=== PATIENT | female | born 1985 | race Caucasian/White ===

== ENCOUNTER 2020-12-24 18:52 | Emergency (ER) | payer BC, MEDICAID ==
[2020-12-24] MEDS ORDERED: Sodium Chloride 0.9% 2.5 ML Syringe FLUSH PRN (19:28)
[2020-12-24] MEDS ORDERED: Sodium Chloride 0.9% 10 ML Syringe FLUSH PRN (19:28)
[2020-12-24] MEDS ORDERED: acetaZOLAMIDE 250 MG Tab PO ONE (19:33)
--- NOTE | 2020-12-24 19:34 | EDM.PDOC ---
ED HPI GENERAL MEDICAL PROBLEM - General Chief Complaint: Head Injury Stated Complaint: INTRACRANIAL HYPERTENSION Time Seen by Provider: 12/24/20 19:18 Source of Information: Reports: Patient History Limitations: Reports: No Limitations - History of Present Illness INITIAL COMMENTS - FREE TEXT/NARRATIVE: 35-year-old female no past medical history presents for blurry vision and headache. Patient notes that she has had blurry vision and mild dull achy headache in her right retro-orbital area for the last 3 weeks. She went to an freight traffic consultant and had a comprehensive eye exam which was concerning for increased intracranial pressure. She has follow-up appointment tomorrow with ophthalmology for further work-up for this. She noted that for the last couple of days she had blurry vision in her left eye. Her headache is not worsening. She has had no nausea or vomiting. Denies any one-sided body weakness or paresthesias. Head Pain Score (Numeric/FACES): 4 - Related Data Allergies Allergy/AdvReac Type Severity Reaction Status Date / Time No Known Allergies Allergy Verified 12/24/20 19:18 Home Meds: Home Meds . [No Known Home Meds] 12/24/20 [History] Social & Family History - Recreational Drug Use Recreational Drug Use: No ED ROS GENERAL - Review of Systems Review Of Systems: Comprehensive ROS is negative, except as noted in HPI. ED EXAM, HEAD INJURY - Physical Exam Exam: See Below Exam Limited By: No Limitations General Appearance: Alert, WD/WN, No Apparent Distress Head: Atraumatic, Normocephalic Eyes: Bilateral Eye: EOMI, PERRL Ears: Hearing Grossly Normal Nose: Normal Inspection Throat/Mouth: Normal Voice, No Airway Compromise Neck: Non-Tender, Full Range of Motion Respiratory: No Respiratory Distress, Lungs Clear, Normal Breath Sounds Cardiovascular: Normal Peripheral Pulses, Regular Rate, Rhythm Extremities: Normal Inspection Neurologic: handbag operator II-XII nml As Tested, No Motor/Sensory Deficits, Alert, Normal Mood/Affect, Oriented x 3, Abnormal Gait Skin: Normal Color, Warm/Dry Course - Vital Signs Last Recorded V/S: Last Vital Signs Temp 97.9 F 12/24/20 19:12 Pulse 78 12/24/20 20:03 Resp 18 12/24/20 20:03 BP 134/79 12/24/20 20:03 Pulse Ox 97 12/24/20 20:03 - Orders/Labs/Meds Orders: Active Orders 24 hr Category Date Time Status Sodium Chloride 0.9% [Saline Flush] Med 12/24/20 19:28 Active 10 ml FLUSH ASDIRECTED PRN Sodium Chloride 0.9% [Saline Flush] Med 12/24/20 19:28 Active 2.5 ml FLUSH ASDIRECTED PRN Saline Lock Insert [OM.PC] Stat Oth 12/24/20 19:28 Ordered Medication Orders Sodium Chloride (Sodium Chloride 0.9% 10 Ml Syringe) 10 ml FLUSH ASDIRECTED PRN PRN Reason: Keep Vein Open Last Admin: 12/24/20 20:29 Dose: 10 ml Documented by: GILA Sodium Chloride (Sodium Chloride 0.9% 2.5 Ml Syringe) 2.5 ml FLUSH ASDIRECTED PRN PRN Reason: Keep Vein Open Last Admin: 12/24/20 20:29 Dose: 2.5 ml Documented by: GILA Labs: Laboratory Tests 12/24/20 12/24/20 12/24/20 Range/Units 19:40 19:40 19:40 WBC 18.20 H (4.0-11.0) K/uL RBC 4.89 (4.30-5.90) M/uL Hgb 15.4 (12.0-16.0) g/dL Hct 45.0 (36.0-46.0) % MCV 92.0 (80.0-98.0) fL MCH 31.5 (27.0-32.0) pg MCHC 34.2 (31.0-37.0) g/dL RDW Std Deviation 44.6 (28.0-62.0) fl RDW Coeff of Felicia 13 (11.0-15.0) % Plt Count 333 (150-400) K/uL MPV 10.20 (7.40-12.00) fL Neut % (Auto) 71.1 (48.0-80.0) % Lymph % (Auto) 21.8 (16.0-40.0) % [place] % (Auto) 4.5 (0.0-15.0) % Eos % (Auto) 2.3 (0.0-7.0) % Baso % (Auto) 0.3 (0.0-1.5) % Neut # (Auto) 13.0 H (1.4-5.7) K/uL Lymph # (Auto) 4.0 H (0.6-2.4) K/uL [place] # (Auto) 0.8 (0.0-0.8) K/uL Eos # (Auto) 0.4 (0.0-0.7) K/uL Baso # (Auto) 0.1 (0.0-0.1) K/uL Nucleated RBC % 0.0 /100WBC Nucleated RBCs # 0 K/uL Sodium 136 (136-145) mmol/L Potassium 3.9 (3.5-5.1) mmol/L Chloride 100 (98-107) mmol/L Carbon Dioxide 25.8 (21.0-32.0) mmol/L BUN 13 (7.0-18.0) mg/dL Creatinine 1.2 H (0.6-1.0) mg/dL Est Cr Clr Drug Dosing 57.04 mL/min Estimated GFR (MDRD) 51.4 ml/min Glucose 123 H (74-106) mg/dL Calcium 9.5 (8.5-10.1) mg/dL Total Bilirubin 0.5 (0.2-1.0) mg/dL AST 15 (15-37) IU/L ALT 26 (14-63) IU/L Alkaline Phosphatase 106 (46-116) U/L Total Protein 8.3 H (6.4-8.2) g/dL Albumin 4.2 (3.4-5.0) g/dL Globulin 4.1 H (2.6-4.0) g/dL Albumin/Globulin Ratio 1.0 (0.9-1.6) HCG, Qual NEGATIVE (NEG) SARS-CoV-2 RNA (ABHISHEK) (NEGATIVE) 12/24/20 Range/Units 20:15 WBC (4.0-11.0) K/uL RBC (4.30-5.90) M/uL Hgb (12.0-16.0) g/dL Hct (36.0-46.0) % MCV (80.0-98.0) fL MCH (27.0-32.0) pg MCHC (31.0-37.0) g/dL RDW Std Deviation (28.0-62.0) fl RDW Coeff of Felicia (11.0-15.0) % Plt Count (150-400) K/uL MPV (7.40-12.00) fL Neut % (Auto) (48.0-80.0) % Lymph % (Auto) (16.0-40.0) % [place] % (Auto) (0.0-15.0) % Eos % (Auto) (0.0-7.0) % Baso % (Auto) (0.0-1.5) % Neut # (Auto) (1.4-5.7) K/uL Lymph # (Auto) (0.6-2.4) K/uL [place] # (Auto) (0.0-0.8) K/uL Eos # (Auto) (0.0-0.7) K/uL Baso # (Auto) (0.0-0.1) K/uL Nucleated RBC % /100WBC Nucleated RBCs # K/uL Sodium (136-145) mmol/L Potassium (3.5-5.1) mmol/L Chloride (98-107) mmol/L Carbon Dioxide (21.0-32.0) mmol/L BUN (7.0-18.0) mg/dL Creatinine (0.6-1.0) mg/dL Est Cr Clr Drug Dosing mL/min Estimated GFR (MDRD) ml/min Glucose (74-106) mg/dL Calcium (8.5-10.1) mg/dL Total Bilirubin (0.2-1.0) mg/dL AST (15-37) IU/L ALT (14-63) IU/L Alkaline Phosphatase (46-116) U/L Total Protein (6.4-8.2) g/dL Albumin (3.4-5.0) g/dL Globulin (2.6-4.0) g/dL Albumin/Globulin Ratio (0.9-1.6) HCG, Qual (NEG) SARS-CoV-2 RNA (ABHISHEK) NEGATIVE (NEGATIVE) Meds: Medications Generic Name Dose Route Start Last Admin Trade Name Freq PRN Reason Stop Dose Admin Sodium Chloride 10 ml 12/24/20 19:28 12/24/20 20:29 Sodium Chloride 0.9% 10 Ml Syringe FLUSH 10 ml ASDIRECTED PRN Administration Keep Vein Open Sodium Chloride 2.5 ml 12/24/20 19:28 12/24/20 20:29 Sodium Chloride 0.9% 2.5 Ml Syringe FLUSH 2.5 ml ASDIRECTED PRN Administration Keep Vein Open Discontinued Medications Generic Name Dose Route Start Last Admin Trade Name Guy PRN Reason Stop Dose Admin Acetazolamide 500 mg 12/24/20 19:33 12/24/20 20:28 Acetazolamide 250 Mg Tab PO 12/24/20 19:34 500 mg ONETIME ONE Administration - Re-Assessments/Exams Free Text/Narrative Re-Assessment/Exam: 12/24/20 19:46 Will get labs and CT imaging. Will give acetazolamide. 12/24/20 22:04 CT imaging is unremarkable. Patient does have a leukocytosis but otherwise labs unremarkable. I spoke with patient regarding the possibility of increased intracranial pressure and offered lumbar puncture procedure and observation admission for further work-up. Patient declines at this time and states that she would rather follow-up with her doctor in the morning. I did discuss the risks of permanent vision loss. Patient states that if things get worse and she will come back to the emergency department. She notes that her freight traffic consultant tomorrow recommends coming back to the ER for a lumbar puncture then she will come back tomorrow. Departure - Departure Time of Disposition: 22:05 Disposition: Home, Self-Care 01 Condition: Good Clinical Impression: Increased intracranial pressure - Discharge Information Instructions: Pseudotumor Cerebri Referrals: Diamond Foster PA [Primary Care Provider] - Forms: ED Department Discharge Additional Instructions: Please follow-up with your doctor tomorrow morning. You are always welcome to come back to the emergency department for the lumbar puncture procedure that we discussed. If your vision worsens or if you have worsening headache then I would encourage you to come back to the emergency department for reassessment. The following information is given to patients seen in the emergency department who are being discharged to home. This information is to outline your options for follow-up care. We provide all patients seen in our emergency department with a follow-up referral. The need for follow-up, as well as the timing and circumstances, are variable depending upon the specifics of your emergency department visit. If you don't have a primary care physician on staff, we will provide you with a referral. We always advise you to contact your personal physician following an emergency department visit to inform them of the circumstance of the visit and for follow-up with them and/or the need for any referrals to a consulting specialist. The emergency department will also refer you to a specialist when appropriate. This referral assures that you have the opportunity for follow-up care with a specialist. All of these measure are taken in an effort to provide you with optimal care, which includes your follow-up. Under all circumstances we always encourage you to contact your private physician who remains a resource for coordinating your care. When calling for f ollow-up care, please make the office aware that this follow-up is from your recent emergency room visit. If for any reason you are refused follow-up, please contact the Emergency Department at and asked to speak to the emergency department charge nurse. Please follow up with your primary care physician. If you do not have a primary care physician, see below: [facility] [address] [place] [id number] [facility] [address] [place] [id number] [facility] [address] [place] [id number] Sepsis Event Note (ED) - Evaluation Sepsis Screening Result: No Definite Risk - Focused Exam Vital Signs: Vital Signs Temp Pulse Resp BP Pulse Ox 12/24/20 20:03 78 18 134/79 97 12/24/20 19:12 97.9 F 77 16 138/79 98 - My Orders Last 24 Hours: My Active Orders 12/24/20 19:28 Sodium Chloride 0.9% [Saline Flush] 10 ml FLUSH ASDIRECTED PRN Sodium Chloride 0.9% [Saline Flush] 2.5 ml FLUSH ASDIRECTED PRN Saline Lock Insert [OM.PC] Stat - Assessment/Plan Last 24 Hours: My Active Orders 12/24/20 19:28 Sodium Chloride 0.9% [Saline Flush] 10 ml FLUSH ASDIRECTED PRN Sodium Chloride 0.9% [Saline Flush] 2.5 ml FLUSH ASDIRECTED PRN Saline Lock Insert [OM.PC] Stat
[2020-12-24 20:10] LABS: CARBON DIOXIDE,CO2 25.8 mmol/L (21.0-32.0); POTASSIUM,K 3.9 mmol/L (3.5-5.1)
--- NOTE | 2020-12-24 21:28 | CT ---
Indication: Headaches Technique: CT of the head without contrast. Coronal and sagittal reformats. Bone and soft tissue windows. Comparison: No prior studies available for comparison at this institution. Findings: No acute intracranial hemorrhage or extra-axial collection. No evidence of acute cortical infarction. No mass effect or midline shift. Normal cerebral volume. The ventricles are normal in size, shape and contour. There is normal gibbons and white matter differentiation. The orbital contents are normal. No calvarial fractures. No lytic or sclerotic osseous lesions within the calvarium or skull base. Scalp and other imaged soft tissue structures are normal. Mastoid air cells are clear. Paranasal sinuses are well aerated. Mild cerumen in the left and right external ear canals. 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 Impression: No acute intracranial abnormality. Please note that all CT scans at this facility use dose modulation, iterative reconstruction, and/or weight-based dosing when appropriate to reduce radiation dose to as low as reasonably achievable. Dictated by Ortega Saldivar MD @ 12/24/2020 10:00:[address] Ortega Saldivar @ Dec 24 2020 10:00PM
== END 2020-12-24 22:34 | disposition home or self-care (01) ==
LOC: MW.ED 18:52
DX: G93.2 Benign intracranial hypertension (principal); D72.829 Elevated white blood cell count, unspecified; Z20.822 Contact with and (suspected) exposure to COVID-19
CPT/HCPCS: 36415; 70450; 80053; 84703; 85025; 87635; 99284; A9270; U0002

== ENCOUNTER 2020-12-25 09:46 | Observation (INO) | payer MEDICAID ==
[2020-12-25] MEDS ORDERED: Sodium Chloride 0.9% 1,000 ML IV ONE (11:05)
[2020-12-25] MEDS ORDERED: Ketorolac 15 MG/ML SDV IVPUSH ONE (11:05)
[2020-12-25] MEDS ORDERED: Lidocaine 1% with EPINEPHrine 1:100,000 10 ML MDV INFILT ONE (11:07)
--- NOTE | 2020-12-25 11:15 | EDM.PDOC ---
ED HPI GENERAL MEDICAL PROBLEM - General Chief Complaint: General Stated Complaint: REFERAL Time Seen by Provider: 12/25/20 10:13 Source of Information: Reports: Patient, Provider - History of Present Illness INITIAL COMMENTS - FREE TEXT/NARRATIVE: 35yo female sent by recreation attendant supervisor for further evaluation. Patient has been apparently having 3 weeks of abnormal vision in the right eye that has progressed and included the left eye. She has apparently been followed by ophthalmology for this (seen in the office just prior to ER visit today and had full ophthalmic exam and found papilledema without any other acute abnormal ophthalmic findings, including no signs of glaucoma, per my discussion with her recreation attendant supervisor). Prior to that she was seen by analysis tester and was told that she may have intracranial hypertension/pseudotumor cerebri based on the papilledema seen on that exam last week. She was seen in the ED last night for this and had negative CT/labs/HCG and was recommended to have LP and admission but she declined due to having Ophtho appointment today. However when she was seen by the recreation attendant supervisor today they sent her to ED for further workup, LP and MRI and IV steroids - as the recreation attendant supervisor was concerned she had optic neuritis and was unable to get the recommended IV steroids outpatient. Patient reports Mild occasional headache/pressure behind her eyes, no neck pain/stiffne ss, no fevers, no confusion. PMH: none other than above PSH: none SOC; no tobacco LMP: mid October- reports her periods are never regular. Negative BHCG on ER labs last night headache Pain Score (Numeric/FACES): 4 - Related Data Allergies Allergy/AdvReac Type Severity Reaction Status Date / Time No Known Allergies Allergy Verified 12/25/20 10:16 Home Meds: Home Meds ALPRAZolam [Xanax] 1 mg PO QID PRN 12/25/20 [History] Esomeprazole Magnesium [Nexium 24Hr] 20 mg PO DAILY #14 capsule. 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 Musculoskeletal History: Reports: None Neurological History: Reports: Other (See Below) Other Neuro History: Patient reports "I have been diagnosed with intracranial hypertension" Psychiatric History: Reports: None Endocrine/Metabolic History: Reports: None Hematologic History: Reports: None Immunologic History: Reports: None Oncologic (Cancer) History: Reports: None Dermatologic History: Reports: None - Infectious Disease History Infectious Disease History: Reports: Chicken Pox - Past Surgical History Head Surgeries/Procedures: Reports: None Social & Family History - Family History Family Medical History: No Pertinent Family History - Tobacco Use Tobacco Use Status *Q: Current Every Day Tobacco User Years of Tobacco use: 2 Packs/Tins Daily: 0.1 - Recreational Drug Use Recreational Drug Use: Yes Drug Use in Last 12 Months: Yes Recreational Drug Type: Reports: Marijuana/Hashish Recreational Drug Use Frequency: Daily ED ROS GENERAL - Review of Systems Review Of Systems: See Below Constitutional: Denies: Fever, Chills HEENT: Reports: Vision Change Respiratory: Reports: No Symptoms Musculoskeletal: Denies: Neck Pain Neurological: Reports: Headache. Denies: Confusion, Numbness, Pre-Existing Deficit ED EXAM, GENERAL - Physical Exam Exam: See Below General Appearance: Alert, WD/WN, No Apparent Distress Eye Exam: Bilateral Eye: Vision Changes (visual acuity R 20/200, L20/40, both 20/40) Ears: Normal External Exam Throat/Mouth: Normal Inspection, Normal Lips Head: Atraumatic, Normocephalic Neck: Normal Inspection, Supple Respiratory/Chest: No Respiratory Distress Cardiovascular: Regular Rate, Rhythm GI/Abdominal: No Distention Neurological: Alert, Oriented, CN II-XII Intact, Normal Cognition, Normal Gait, No Motor/Sensory Deficits ED GENERAL MEDICAL PROCEDURES - Lumbar Puncture Indication: Other (increased ICP) Consent Obtained: Patient Position: Right Prep: Sterile Drapes, Betadine Local Anesthesia - Lidocaine (Xylocaine): 1% with EPI Local Anesthetic Volume: 5cc Vertebral Interspace: L4/L5 Spinal Needle with Stylet: 22ga, 3.5 Inch (Adult) Number of Attempts: 2 Fluid Appearance: Clear Opening Pressure: 24 Tubes Obtained: 4 Total Fluid Amount: Other (11) Complications: No Sterile Dressing: Adhesive Dressing Course - Vital Signs Text/Narrative:: Mild headache, vision loss progressive over 3 weeks, no abnormal finding on CT brain last night or MRI here today. papilledema on ophthalmologic exam outpatient today, Opening pressure of LP 24. No distress, CSF fluid removed and sent for labs, culture, gram stain. Patient tolerated well. She did have mild improvement after LP /CSF removal. Received IV abx. No signs of clinical meningitis. Serum wbc is elevated but afebrile and no meningismus. Given IV steroids at recommendation of ophtho, who was concerned for optic neuritis and will follow up with the patient ongoing outpatient for ongoing care and steroid treatment/taper. Case also discussed with Neurology at [facility] for consultation - possible pseudotumor vs optic neuritis, recommends starting IV steroids and can followup with neurology outpatient after d/c from hospital, no need for transfer there tonight for rapid neuro eval, given remainder of workup is negative. The patient will be admitted here as she has no other ability to get the recommended IV high dose steroid injections recommended. The patient is in agreement with this. Last Recorded V/S: Last Vital Signs Temp 98.3 F 12/26/20 12:00 Pulse 82 12/26/20 12:00 Resp 16 12/26/20 12:00 BP 114/70 12/26/20 12:00 Pulse Ox 98 12/26/20 12:00 - Orders/Labs/Meds Labs: Laboratory Tests 12/25/20 12/25/20 12/25/20 Range/Units 11:16 11:16 11:16 WBC 19.22 H (4.0-11.0) K/uL RBC 4.88 (4.30-5.90) M/uL Hgb 15.4 (12.0-16.0) g/dL Hct 45.1 (36.0-46.0) % MCV 92.4 (80.0-98.0) fL MCH 31.6 (27.0-32.0) pg MCHC 34.1 (31.0-37.0) g/dL RDW Std Deviation 45.1 (28.0-62.0) fl RDW Coeff of Felicia 13 (11.0-15.0) % Plt Count 327 (150-400) K/uL MPV 10.50 (7.40-12.00) fL Neut % (Auto) 77.4 (48.0-80.0) % Lymph % (Auto) 17.3 (16.0-40.0) % [place] % (Auto) 4.1 (0.0-15.0) % Eos % (Auto) 1.0 (0.0-7.0) % Baso % (Auto) 0.2 (0.0-1.5) % Neut # (Auto) 14.9 H (1.4-5.7) K/uL Lymph # (Auto) 3.3 H (0.6-2.4) K/uL [place] # (Auto) 0.8 (0.0-0.8) K/uL Eos # (Auto) 0.2 (0.0-0.7) K/uL Baso # (Auto) 0.0 (0.0-0.1) K/uL Nucleated RBC % 0.0 /100WBC Nucleated RBCs # 0 K/uL ESR 5 (0-19) mm/hr Sodium 134 L (136-145) mmol/L Potassium 4.2 (3.5-5.1) mmol/L Chloride 102 (98-107) mmol/L Carbon Dioxide 21.6 (21.0-32.0) mmol/L BUN 13 (7.0-18.0) mg/dL Creatinine 1.2 H (0.6-1.0) mg/dL Est Cr Clr Drug Dosing 57.04 mL/min Estimated GFR (MDRD) 51.4 ml/min Glucose 103 (74-106) mg/dL Calcium 9.5 (8.5-10.1) mg/dL Total Bilirubin 0.7 (0.2-1.0) mg/dL AST 17 (15-37) IU/L ALT 22 (14-63) IU/L Alkaline Phosphatase 105 (46-116) U/L C-Reactive Protein 0.60 (0.00-0.90) mg/dL Total Protein 8.6 H (6.4-8.2) g/dL Albumin 4.4 (3.4-5.0) g/dL Globulin 4.2 H (2.6-4.0) g/dL Albumin/Globulin Ratio 1.1 (0.9-1.6) CSF Appearance CSF Color CSF WBC (0-5) /uL CSF RBC (0-0) /uL CSF Mononuclear Cells % CSF Polymorphonuclear % CSF Glucose (40-70) mg/dL CSF Total Protein (15-45) mg/dL RPR (Non-Reac) 12/25/20 12/25/20 12/25/20 Range/Units 11:16 15:55 15:55 WBC (4.0-11.0) K/uL RBC (4.30-5.90) M/uL Hgb (12.0-16.0) g/dL Hct (36.0-46.0) % MCV (80.0-98.0) fL MCH (27.0-32.0) pg MCHC (31.0-37.0) g/dL RDW Std Deviation (28.0-62.0) fl RDW Coeff of Felicia (11.0-15.0) % Plt Count (150-400) K/uL MPV (7.40-12.00) fL Neut % (Auto) (48.0-80.0) % Lymph % (Auto) (16.0-40.0) % [place] % (Auto) (0.0-15.0) % Eos % (Auto) (0.0-7.0) % Baso % (Auto) (0.0-1.5) % Neut # (Auto) (1.4-5.7) K/uL Lymph # (Auto) (0.6-2.4) K/uL [place] # (Auto) (0.0-0.8) K/uL Eos # (Auto) (0.0-0.7) K/uL Baso # (Auto) (0.0-0.1) K/uL Nucleated RBC % /100WBC Nucleated RBCs # K/uL ESR (0-19) mm/hr Sodium (136-145) mmol/L Potassium (3.5-5.1) mmol/L Chloride (98-107) mmol/L Carbon Dioxide (21.0-32.0) mmol/L BUN (7.0-18.0) mg/dL Creatinine (0.6-1.0) mg/dL Est Cr Clr Drug Dosing mL/min Estimated GFR (MDRD) ml/min Glucose (74-106) mg/dL Calcium (8.5-10.1) mg/dL Total Bilirubin (0.2-1.0) mg/dL AST (15-37) IU/L ALT (14-63) IU/L Alkaline Phosphatase (46-116) U/L C-Reactive Protein (0.00-0.90) mg/dL Total Protein (6.4-8.2) g/dL Albumin (3.4-5.0) g/dL Globulin (2.6-4.0) g/dL Albumin/Globulin Ratio (0.9-1.6) CSF Appearance CLEAR CSF Color COLORLESS CSF WBC 1 (0-5) /uL CSF RBC 8 H (0-0) /uL CSF Mononuclear Cells 100.0 % CSF Polymorphonuclear 0.0 % CSF Glucose 68.0 (40-70) mg/dL CSF Total Protein 96 H (15-45) mg/dL RPR Non-Reac (Non-Reac) 12/25/20 Range/Units 15:55 WBC (4.0-11.0) K/uL RBC (4.30-5.90) M/uL Hgb (12.0-16.0) g/dL Hct (36.0-46.0) % MCV (80.0-98.0) fL MCH (27.0-32.0) pg MCHC (31.0-37.0) g/dL RDW Std Deviation (28.0-62.0) fl RDW Coeff of Felicia (11.0-15.0) % Plt Count (150-400) K/uL MPV (7.40-12.00) fL Neut % (Auto) (48.0-80.0) % Lymph % (Auto) (16.0-40.0) % [place] % (Auto) (0.0-15.0) % Eos % (Auto) (0.0-7.0) % Baso % (Auto) (0.0-1.5) % Neut # (Auto) (1.4-5.7) K/uL Lymph # (Auto) (0.6-2.4) K/uL [place] # (Auto) (0.0-0.8) K/uL Eos # (Auto) (0.0-0.7) K/uL Baso # (Auto) (0.0-0.1) K/uL Nucleated RBC % /100WBC Nucleated RBCs # K/uL ESR (0-19) mm/hr Sodium (136-145) mmol/L Potassium (3.5-5.1) mmol/L Chloride (98-107) mmol/L Carbon Dioxide (21.0-32.0) mmol/L BUN (7.0-18.0) mg/dL Creatinine (0.6-1.0) mg/dL Est Cr Clr Drug Dosing mL/min Estimated GFR (MDRD) ml/min Glucose (74-106) mg/dL Calcium (8.5-10.1) mg/dL Total Bilirubin (0.2-1.0) mg/dL AST (15-37) IU/L ALT (14-63) IU/L Alkaline Phosphatase (46-116) U/L C-Reactive Protein (0.00-0.90) mg/dL Total Protein (6.4-8.2) g/dL Albumin (3.4-5.0) g/dL Globulin (2.6-4.0) g/dL Albumin/Globulin Ratio (0.9-1.6) CSF Appearance CLEAR CSF Color COLORLESS CSF WBC 1 (0-5) /uL CSF RBC 7 H (0-0) /uL CSF Mononuclear Cells 100.0 % CSF Polymorphonuclear 0.0 % CSF Glucose (40-70) mg/dL CSF Total Protein (15-45) mg/dL RPR (Non-Reac) Meds: Medications Discontinued Medications Generic Name Dose Route Start Last Admin Trade Name Freq PRN Reason Stop Dose Admin Acetaminophen 650 mg 12/25/20 18:33 12/26/20 10:48 Acetaminophen 325 Mg Tab PO 650 mg Q4H PRN Administration Pain (Mild 1-3)/fever Diphenhydramine HCl 25 mg 12/25/20 13:22 12/25/20 13:30 Diphenhydramine 50 Mg/Ml Sdv IVPUSH 12/25/20 13:23 25 mg ONETIME ONE Administration Sodium Chloride 1,000 mls @ 999 mls/hr 12/25/20 11:05 12/25/20 11:19 Normal Saline IV 12/25/20 12:05 999 mls/hr .Bolus ONE Administration Ceftriaxone Sodium/Dextrose 1 50 mls @ 100 mls/hr 12/25/20 12:23 12/25/20 13:17 gm/ Premix IV 12/25/20 12:52 100 mls/hr ONETIME ONE Administration Methylprednisolone Sodium 258 mls @ 516 mls/hr 12/25/20 17:30 Succinate 1,000 mg/ Sodium IV 12/25/20 17:59 Chloride ONETIME ONE Methylprednisolone Sodium 257 mls @ 514 mls/hr 12/25/20 17:15 12/25/20 18:02 Succinate 875 mg/ Sodium IV 12/25/20 17:44 514 mls/hr Chloride ONETIME ONE Administration Vancomycin HCl 1.5 gm/ Premix 300 mls @ 200 mls/hr 12/25/20 17:34 12/25/20 17:57 IV 12/25/20 19:03 200 mls/hr ONETIME ONE Administration Methylprednisolone Sodium 258 mls @ 258 mls/hr 12/26/20 15:00 12/26/20 15:41 Succinate 1,000 mg/ Sodium IV 12/26/20 15:59 258 mls/hr Chloride ONETIME ONE Administration Ketorolac Tromethamine 15 mg 12/25/20 11:05 12/25/20 12:20 Ketorolac 15 Mg/Ml Sdv IVPUSH 12/25/20 11:06 15 mg ONETIME ONE Administration Ketorolac Tromethamine 15 mg 12/25/20 13:22 12/25/20 13:29 Ketorolac 30 Mg/Ml Sdv IVPUSH 12/25/20 13:23 15 mg ONETIME ONE Administration Ketorolac Tromethamine 15 mg 12/26/20 12:55 12/26/20 13:00 Ketorolac 15 Mg/Ml Sdv IVPUSH 12/26/20 12:56 15 mg ONETIME ONE Administration Lidocaine HCl 5 ml 12/25/20 12:31 12/25/20 13:17 Lidocaine 1% 5 Ml Sdv INJECT 12/25/20 12:32 5 ml ONETIME ONE Administration Lidocaine/Epinephrine 10 ml 12/25/20 11:07 12/25/20 12:25 Lidocaine 1% With Epinephrine 1:100,000 10 Ml Mdv INFILT 12/25/20 11:08 Not Given ONETIME ONE Methylprednisolone Sodium Succinate 125 mg 12/25/20 16:04 12/25/20 16:55 Methylprednisolone Sodium Succinate 125 Mg/2 Ml Sdv IV 12/25/20 16:05 125 mg ONETIME ONE Administration Metoclopramide HCl 10 mg 12/25/20 13:22 12/25/20 13:29 Metoclopramide 10 Mg/2 Ml Sdv IVPUSH 12/25/20 13:23 10 mg ONETIME ONE Administration - Re-Assessments/Exams Free Text/Narrative Re-Assessment/Exam: 12/25/20 14:35 patient feeling well, was able to rest/take a nap and reports feeling better. 12/25/20 17:[address] Guo, recommends attempt outpatient infusion center with prescription. Case discussed with nursing supervisor typesetting, and pharmacist. Also discussed with DR Warner, neurologist at [facility]. He recommends IV solumedrol and send off MS - panel on CSF. 12/25/20 18:05 At this point, I am concerned about the patient's ability to get appropriate treatment/outpatient followup/solumedrol IV, and infusion center is currently closed and unable to confirm ability to see patient without insurance, therefore I discussed with patient, and admitting physician plan to admit/obs patient tonight to ensure getting appropriate regmin. Dr Guo accepts at this time Departure - Departure Time of Disposition: 18:05 Disposition: Refer to Observation Clinical Impression: Vision loss, bilateral, Optic neuritis - Discharge Information Sepsis Event Note (ED) - Evaluation Sepsis Screening Result: No Definite Risk
[2020-12-25 11:59] LABS: CARBON DIOXIDE,CO2 21.6 mmol/L (21.0-32.0); POTASSIUM,K 4.2 mmol/L (3.5-5.1)
[2020-12-25] MEDS ORDERED: cefTRIAXone 1 GM in Premix Bag 1 BAG IV ONE (12:23)
--- NOTE | 2020-12-25 12:24 | MR ---
INDICATION: Abnormal vision. Headache. Intracranial hypertension. TECHNIQUE: Multiplanar multisequence MR imaging acquired through the brain without intravenous contrast. COMPARISON: CT brain 12/24/2020. FINDINGS: The ventricles and sulci are within normal limits for patient age. No mass effect or midline shift. No parenchymal signal abnormalities. No diffusion restriction to suggest acute infarction. No intracranial hemorrhage or pathologic extra-axial fluid collection. Circumscribed 9 mm T2 hyperintense lesion in the pineal region, typical for an incidental pineal cyst. The major arterial flow voids of the skullbase are preserved. The globes are symmetric. The paranasal sinuses are well aerated. Small retention cysts in the nasopharynx. The mastoid air cells are clear. IMPRESSION: 1. No acute infarction, mass effect, or intracranial hemorrhage. 2. Incidental pineal cyst. Dictated by Sandoval Dc MD @ 12/25/2020 12:23:[address] Sandoval Dc @ Dec 25 2020 12:23PM
[2020-12-25] MEDS ORDERED: diphenhydrAMINE 50 MG/ML SDV IVPUSH ONE (13:22)
[2020-12-25] MEDS ORDERED: Ketorolac 30 MG/ML SDV IVPUSH ONE (13:22)
[2020-12-25] MEDS ORDERED: Metoclopramide 10 MG/2 ML SDV IVPUSH ONE (13:22)
[2020-12-25] MEDS ORDERED: methylPREDNISolone Sodium Succinate 125 MG/2 ML SDV IV ONE (16:04)
[2020-12-25] MEDS ORDERED: methylPREDNISolone Sodium Succinate 2 GM Vial IV ONE (16:58)
[2020-12-25] MEDS ORDERED: methylPREDNISolone Sodium Succinate 1,000 MG/8 ML SDV IV ONE (17:02)
[2020-12-25] MEDS ORDERED: SODIUM CHLORIDE 0.9% IV ONE (17:15)
[2020-12-25] MEDS ORDERED: METHYLPREDNISOLONE SOD SUCC IV ONE (17:15)
[2020-12-25] MEDS ORDERED: VANCOmycin 1.5 GM/300 ML 1.5 GM in Premix Bag 1 BAG IV ONE (17:34)
--- NOTE | 2020-12-25 18:16 | PCM.HP.2 ---
H&P History of Present Illness - General Date of Service: 12/25/20 - History of Present Illness Initial Comments - Free Text/Narative: 35yo presents to the ED after ophthalmology appointment for further work-up for suspected optic neuritis. Patient states 3 week history of right eye pain, blurry and loss of vision of the right eye. 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 Per documentation patient was seen in the ED last night for work-up advised to have an LP. Patient denied as she was having an ophthalmology appointment today. Patient denied fever, chills, nausea, vomiting, denied neck pain, denies neck stiffness, states mild intermittent headaches. Patient states right eye blurry vision which is worsened with bright lights. ED work-up, laboratory findings includes white blood cell count 19.2. Creatinine slightly elevated 1.2. CT head without contrast impression, no acute intracranial abnormalities. 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 Lumbar puncture noted elevated total protein of 96. Patient given IV 1,000 mg methylprednisolone for optic neuritis treatment. Patient admitted for observation, will contact infusion center in the morning to determine if patient may receive IV steroid treatment as an outpatient. headache Pain Score (Numeric/FACES): 4 - Related Data Allergies/Adverse Reactions: Allergies Allergy/AdvReac Type Severity Reaction Status Date / Time No Known Allergies Allergy Verified 12/25/20 10:16 Home Medications: Home Meds . 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 Musculoskeletal History: Reports: None Neurological History: Reports: Other (See Below) Other Neuro History: Patient reports "I have been diagnosed with intracranial hypertension" Psychiatric History: Reports: None Endocrine/Metabolic History: Reports: None Hematologic History: Reports: None Immunologic History: Reports: None Oncologic (Cancer) History: Reports: None Dermatologic History: Reports: None - Infectious Disease History Infectious Disease History: Reports: Chicken Pox - Past Surgical History Head Surgeries/Procedures: Reports: None Social & Family History - Family History Family Medical History: No Pertinent Family History - Tobacco Use Tobacco Use Status *Q: Current Every Day Tobacco User Years of Tobacco use: 2 Packs/Tins Daily: 0.1 - Recreational Drug Use Recreational Drug Use: Yes Drug Use in Last 12 Months: Yes Recreational Drug Type: Reports: Marijuana/Hashish Recreational Drug Use Frequency: Daily H&P Review of Systems - Review of Systems: Review Of Systems: See Below General: Denies: Fever, Chills HEENT: Reports: Eye Pain (right), Headaches, Visual Changes. Denies: Ear Pain Pulmonary: Denies: Shortness of Breath, Wheezing Cardiovascular: Denies: Chest Pain, Palpitations, Dyspnea on Exertion, Edema Gastrointestinal: Denies: Abdominal Pain, Nausea, Vomiting Neurological: Reports: Headache. Denies: Confusion, Dizziness Exam - Exam Exam: See Below - Vital Signs Vital Signs: Last Vital Signs Temp 97 F 12/25/20 17:37 Pulse 74 12/25/20 17:37 Resp 16 12/25/20 17:37 BP 119/73 12/25/20 17:37 Pulse Ox 100 12/25/20 17:37 Weight: 205 lb - Exam General: Alert, Oriented HEENT: Hearing Intact, Pupils Reactive Lungs: Clear to Auscultation, Normal Respiratory Effort Cardiovascular: Regular Rate, Regular Rhythm GI/Abdominal Exam: Soft, Non-Tender Extremities: No Pedal Edema Neurological: Normal Speech Neuro Extensive - Mental Status: Alert, Oriented x3 Neuro Extensive - Motor, Sensory, Reflexes: CN II-XII Intact Psychiatric: Alert - Patient Data Lab Results Last 24 hrs: Laboratory Results - last 24 hr 12/25/20 12/25/20 12/25/20 Range/Units 11:16 11:16 11:16 WBC 19.22 H (4.0-11.0) K/uL RBC 4.88 (4.30-5.90) M/uL Hgb 15.4 (12.0-16.0) g/dL Hct 45.1 (36.0-46.0) % MCV 92.4 (80.0-98.0) fL MCH 31.6 (27.0-32.0) pg MCHC 34.1 (31.0-37.0) g/dL RDW Std Deviation 45.1 (28.0-62.0) fl RDW Coeff of Felicia 13 (11.0-15.0) % Plt Count 327 (150-400) K/uL MPV 10.50 (7.40-12.00) fL Neut % (Auto) 77.4 (48.0-80.0) % Lymph % (Auto) 17.3 (16.0-40.0) % Kendall % (Auto) 4.1 (0.0-15.0) % Eos % (Auto) 1.0 (0.0-7.0) % Baso % (Auto) 0.2 (0.0-1.5) % Neut # (Auto) 14.9 H (1.4-5.7) K/uL Lymph # (Auto) 3.3 H (0.6-2.4) K/uL Kendall # (Auto) 0.8 (0.0-0.8) K/uL Eos # (Auto) 0.2 (0.0-0.7) K/uL Baso # (Auto) 0.0 (0.0-0.1) K/uL Nucleated RBC % 0.0 /100WBC Nucleated RBCs # 0 K/uL ESR 5 (0-19) mm/hr Sodium 134 L (136-145) mmol/L Potassium 4.2 (3.5-5.1) mmol/L Chloride 102 (98-107) mmol/L Carbon Dioxide 21.6 (21.0-32.0) mmol/L BUN 13 (7.0-18.0) mg/dL Creatinine 1.2 H (0.6-1.0) mg/dL Est Cr Clr Drug Dosing 57.04 mL/min Estimated GFR (MDRD) 51.4 ml/min Glucose 103 (74-106) mg/dL Calcium 9.5 (8.5-10.1) mg/dL Total Bilirubin 0.7 (0.2-1.0) mg/dL AST 17 (15-37) IU/L ALT 22 (14-63) IU/L Alkaline Phosphatase 105 (46-116) U/L C-Reactive Protein 0.60 (0.00-0.90) mg/dL Total Protein 8.6 H (6.4-8.2) g/dL Albumin 4.4 (3.4-5.0) g/dL Globulin 4.2 H (2.6-4.0) g/dL Albumin/Globulin Ratio 1.1 (0.9-1.6) CSF Appearance CSF Color CSF WBC (0-5) /uL CSF RBC (0-0) /uL CSF Mononuclear Cells % CSF Polymorphonuclear % CSF Glucose (40-70) mg/dL CSF Total Protein (15-45) mg/dL 12/25/20 12/25/20 12/25/20 Range/Units 15:55 15:55 15:55 WBC (4.0-11.0) K/uL RBC (4.30-5.90) M/uL Hgb (12.0-16.0) g/dL Hct (36.0-46.0) % MCV (80.0-98.0) fL MCH (27.0-32.0) pg MCHC (31.0-37.0) g/dL RDW Std Deviation (28.0-62.0) fl RDW Coeff of Felicia (11.0-15.0) % Plt Count (150-400) K/uL MPV (7.40-12.00) fL Neut % (Auto) (48.0-80.0) % Lymph % (Auto) (16.0-40.0) % Kendall % (Auto) (0.0-15.0) % Eos % (Auto) (0.0-7.0) % Baso % (Auto) (0.0-1.5) % Neut # (Auto) (1.4-5.7) K/uL Lymph # (Auto) (0.6-2.4) K/uL Kendall # (Auto) (0.0-0.8) K/uL Eos # (Auto) (0.0-0.7) K/uL Baso # (Auto) (0.0-0.1) K/uL Nucleated RBC % /100WBC Nucleated RBCs # K/uL ESR (0-19) mm/hr Sodium (136-145) mmol/L Potassium (3.5-5.1) mmol/L Chloride (98-107) mmol/L Carbon Dioxide (21.0-32.0) mmol/L BUN (7.0-18.0) mg/dL Creatinine (0.6-1.0) mg/dL Est Cr Clr Drug Dosing mL/min Estimated GFR (MDRD) ml/min Glucose (74-106) mg/dL Calcium (8.5-10.1) mg/dL Total Bilirubin (0.2-1.0) mg/dL AST (15-37) IU/L ALT (14-63) IU/L Alkaline Phosphatase (46-116) U/L C-Reactive Protein (0.00-0.90) mg/dL Total Protein (6.4-8.2) g/dL Albumin (3.4-5.0) g/dL Globulin (2.6-4.0) g/dL Albumin/Globulin Ratio (0.9-1.6) CSF Appearance CLEAR CLEAR CSF Color COLORLESS COLORLESS CSF WBC 1 1 (0-5) /uL CSF RBC 8 H 7 H (0-0) /uL CSF Mononuclear Cells 100.0 100.0 % CSF Polymorphonuclear 0.0 0.0 % CSF Glucose 68.0 (40-70) mg/dL CSF Total Protein 96 H (15-45) mg/dL Result Diagrams: 12/25/20 11:16 12/25/20 11:16 Sepsis Event Note - Evaluation Sepsis Screening Result: No Definite Risk - Focused Exam Vital Signs: Vital Signs Temp Pulse Resp BP Pulse Ox 12/25/20 17:37 97 F 74 16 119/73 100 12/25/20 16:52 64 134/91 H 99 12/25/20 16:22 58 L 130/84 97 12/25/20 15:52 60 123/82 100 12/25/20 13:41 97 F 70 14 123/81 99 12/25/20 13:20 96.9 F 71 15 127/87 100 12/25/20 12:15 96.7 F L 74 16 125/85 99 12/25/20 10:13 95.6 F L 79 16 139/93 H 100 - Problem List (1) Optic neuritis SNOMED Code(s): 95620364 ICD Code: H46.9 - UNSPECIFIED OPTIC NEURITIS Status: Acute Current Visit: Yes (2) Increased intracranial pressure SNOMED Code(s): 679884201 ICD Code: G93.2 - BENIGN INTRACRANIAL HYPERTENSION Status: Acute Current Visit: No Problem List Initiated/Reviewed/Updated: Yes Orders Last 24hrs: Active Orders 24 hr Category Date Time Status Flat in Bed [] ASDIRECTED Care 12/25/20 11:07 Active Procedure Tray at Bedside [RC] ASDIRECTED Care 12/25/20 11:07 Active Verify Patient Consent Obtain [RC] ASDIRECTED Care 12/25/20 11:07 Active Visual Acuity [Vision Test] [RC] ASDIRECTED Care 12/25/20 17:44 Active CSF CULTURE [MREF] Urgent Lab 12/25/20 15:55 Received LYME, TOTAL AB TEST/REFLEX [REF] Stat Lab 12/25/20 12:07 Received MISC TEST Stat Lab 12/25/20 18:11 Ordered RPR (SYPHILIS SERO) W/ RFLX [REF] Stat Lab 12/25/20 11:16 Received T PALLIDUM AB (FTA-AB) [REF] Stat Lab 12/25/20 12:07 Received VANCOmycin 1.5 GM/300 ML 1.5 gm Med 12/25/20 17:34 Active Premix Bag 1 bag IV ONETIME ED Lumbar Puncture Reflex [OM.PC] Click to Edit Oth 12/25/20 11:07 Ordered Medication Orders Vancomycin HCl 1.5 gm/ Premix 300 mls @ 200 mls/hr IV ONETIME ONE Stop: 12/25/20 19:03 Last Admin: 12/25/20 17:57 Dose: 200 mls/hr Documented by: SEWATIF Assessment/Plan Comment:: Optic Neuritis- High dose steroid therapy (1,000mg methylprednisolone IV Q24hr). Patient has already received IV methylprednisolone 1,000 mg dose in the ED prior to admission. Will follow up with Infusion center in the morning to determine if subsequent IV steroid doses may be given as outpatient treatment. Fluids not required as patient is eating and drinking adequately, DVT prophylaxis with SCD. Pain control with 650 mg Tylenol, regular diet.
[2020-12-25] MEDS: Acetaminophen 325 MG Tab PO PRN (23:22)
[2020-12-26] MEDS: Acetaminophen 325 MG Tab PO PRN (10:48)
[2020-12-26] MEDS ORDERED: Ketorolac 15 MG/ML SDV IVPUSH ONE (12:55)
[2020-12-26] MEDS ORDERED: methylPREDNISolone Sodium Succinate 2 GM Vial IV ONE (14:50)
--- NOTE | 2020-12-26 21:48 | PCM.DCSUM1 ---
<Neftaly Kirby - Last Filed: 12/26/20 21:42> Discharge Summary - Hospital Course Free Text/Narrative:: 35yo presents to the ED after ophthalmology appointment for further work-up for suspected optic neuritis. Patient states 3 week history of right eye pain, blurry and loss of vision of the right eye. 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 Per documentation patient was seen in the ED last night for work-up advised to have an LP. Patient denied as she was having an ophthalmology appointment today. Patient denied fever, chills, nausea, vomiting, denied neck pain, denies neck stiffness, states mild intermittent headaches. Patient states right eye blurry vision which is worsened with bright lights. ED work-up, laboratory findings includes white blood cell count 19.2. Creatinine slightly elevated 1.2. CT head without contrast impression, no acute intracranial abnormalities. 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 Lumbar puncture noted elevated total protein of 96. Patient given IV 1,000 mg methylprednisolone for optic neuritis treatment. Patient was admitted for IV steroid treatment and observation. Patient's op hthalmologist, Dr. Tamiko Ramos, at [facility] in [place] was contacted. Dr. Ramos agrees with our plan to give the patient 3 doses of 1,000 mg methylprednisolone IV and an 11-day course with 4-day taper of oral prednisone. Patient received second dose of IV 1,000mg methylprednisolone while admitted to medical floor and will receive the third dose at the infusion center on 12/27/20 post discharge. Patient was also prescribed 80 mg p.o. daily X 11 days, 60 mg p.o. daily on day 12, 40 mg p.o. daily on day 13, 20 mg p.o. daily on day 14, 10 mg p.o. daily on day 15 of PO steroids. Patient will follow up with Dr. Ramos for further treatment. Dr. Ramos is also provided with the patient's brain MRI which was taken in the emergency department. - Discharge Data Discharge Date: 12/26/20 Discharge Disposition: Home, Self-Care 01 Condition: Stable - Referral to Home Health Primary Care Physician: LUIS FELIPE De Oliveira - Discharge Diagnosis/Problem(s) (1) Optic neuritis SNOMED Code(s): 95470186 ICD Code: H46.9 - UNSPECIFIED OPTIC NEURITIS Status: Acute (2) Increased intracranial pressure SNOMED Code(s): 597964564 ICD Code: G93.2 - BENIGN INTRACRANIAL HYPERTENSION Status: Acute - Patient Instructions Diet: Usual Diet as Tolerated Activity: As Tolerated Notify Provider of: Increased Pain, Swelling and Redness Other/Special Instructions: PATIENT TO TAKE 80mg WITH BREAKFAST ON DAYS 1-11. PATIENT TO TAKE 60mg WITH BREAKFAST ON DAY 12. PATIENT TO TAKE 40mg WITH BREAKFAST ON DAY 13. PATIENT TO TAKE 20mg WITH BREAKFAST ON DAY 14. PATIENT TO TAKE 10mg WITH BREAKFAST ON DAY 15. REPORT ANY SYMPTOMS OF VISION LOSS, BLURRY VISION, HEADACHE PAIN TO OPTHALMOLOGIST - Discharge Plan *PRESCRIPTION DRUG MONITORING PROGRAM REVIEWED*: Not Applicable *COPY OF PRESCRIPTION DRUG MONITORING REPORT IN PATIENT BETHANIE: Not Applicable Prescriptions/Med Rec: Esomeprazole Magnesium [Nexium 24Hr] 20 mg PO DAILY #14 capsule. predniSONE 10 mg PO WITHBREAKFAST 1 Days #1 tab predniSONE 80 mg PO WITHBREAKFAST 11 Days #44 tab predniSONE 40 mg PO WITHBREAKFAST 1 Days #2 tab predniSONE 20 mg PO WITHBREAKFAST 1 Days #1 tab predniSONE 40 mg PO WITHBREAKFAST 1 Days #2 tab predniSONE [Prednisone] 60 mg PO DAILY 1 Days #3 tablet Home Medications: Home Meds ALPRAZolam [Xanax] 1 mg PO QID PRN 12/25/20 [History] Esomeprazole Magnesium [Nexium 24Hr] 20 mg PO DAILY #14 capsule. 12/26/20 [Rx] predniSONE 10 mg PO WITHBREAKFAST 1 Days #1 tab 12/26/20 [Rx] predniSONE 20 mg PO WITHBREAKFAST 1 Days #1 tab 12/26/20 [Rx] predniSONE 40 mg PO WITHBREAKFAST 1 Days #2 tab 12/26/20 [Rx] predniSONE 40 mg PO WITHBREAKFAST 1 Days #2 tab 12/26/20 [Rx] predniSONE 80 mg PO WITHBREAKFAST 11 Days #44 tab 12/26/20 [Rx] predniSONE [Prednisone] 60 mg PO DAILY 1 Days #3 tablet 12/26/20 [Rx] Patient Handouts: Prednisone tablets, Esomeprazole capsules Referrals: Facundo Perdue MD [Physician] - 01/02/21 10:30 am Diamond Foster PA [Primary Care Provider] - (Unable to schedule appointment with Diamond due to her being booked until end december.) - Discharge Summary/Plan Comment DC Time >30 min.: Yes - Review of Systems General: Denies: Weakness, Chills HEENT: Reports: Eye Pain (mild right eye pain which has imrpoved since admission), Headaches, Visual Changes (blurry vision of right eye which is improving) Pulmonary: Denies: Shortness of Breath, Pleuritic Chest Pain, Cough Cardiovascular: Denies: Chest Pain, Dyspnea on Exertion Gastrointestinal: Denies: Abdominal Pain, Constipation, Decreased Appetite, Diarrhea Neurological: Reports: Headache. Denies: Dizziness - Patient Data Vitals - Most Recent: Last Vital Signs Temp 98.3 F 12/26/20 12:00 Pulse 82 12/26/20 12:00 Resp 16 12/26/20 12:00 BP 114/70 12/26/20 12:00 Pulse Ox 98 12/26/20 12:00 Weight - Most Recent: 90.3 kg I&O - Last 24 hours: Intake & Output 12/26/20 12/26/20 12/26/20 06:59 14:59 22:59 Intake Total 500 Output Total 0 Balance 500 Lab Results - Last 24 hrs: Laboratory Results - last 24 hr 12/25/20 Range/Units 11:16 RPR Non-Reac (Non-Reac) Med Orders - Current: Current Medications Discontinued Medications Acetaminophen (Acetaminophen 325 Mg Tab) 650 mg PO Q4H PRN PRN Reason: Pain (Mild 1-3)/fever Last Admin: 12/26/20 10:48 Dose: 650 mg Documented by: Diphenhydramine HCl (Diphenhydramine 50 Mg/Ml Sdv) 25 mg IVPUSH ONETIME ONE Stop: 12/25/20 13:23 Last Admin: 12/25/20 13:30 Dose: 25 mg Documented by: Sodium Chloride (Normal Saline) 1,000 mls @ 999 mls/hr IV .Bolus ONE Stop: 12/25/20 12:05 Last Admin: 12/25/20 11:19 Dose: 999 mls/hr Documented by: Ceftriaxone Sodium/Dextrose 1 (gm/ Premix) 50 mls @ 100 mls/hr IV ONETIME ONE Stop: 12/25/20 12:52 Last Admin: 12/25/20 13:17 Dose: 100 mls/hr Documented by: Methylprednisolone Sodium Succinate 1,000 mg/ Sodium Chloride 258 mls @ 516 mls/hr IV ONETIME ONE Stop: 12/25/20 17:59 Methylprednisolone Sodium Succinate 875 mg/ Sodium Chloride 257 mls @ 514 mls/hr IV ONETIME ONE Stop: 12/25/20 17:44 Last Admin: 12/25/20 18:02 Dose: 514 mls/hr Documented by: Vancomycin HCl 1.5 gm/ Premix 300 mls @ 200 mls/hr IV ONETIME ONE Stop: 12/25/20 19:03 Last Admin: 12/25/20 17:57 Dose: 200 mls/hr Documented by: Methylprednisolone Sodium Succinate 1,000 mg/ Sodium Chloride 258 mls @ 258 mls/hr IV ONETIME ONE Stop: 12/26/20 15:59 Last Admin: 12/26/20 15:41 Dose: 258 mls/hr Documented by: Ketorolac Tromethamine (Ketorolac 15 Mg/Ml Sdv) 15 mg IVPUSH ONETIME ONE Stop: 12/25/20 11:06 Last Admin: 12/25/20 12:20 Dose: 15 mg Documented by: Ketorolac Tromethamine (Ketorolac 30 Mg/Ml Sdv) 15 mg IVPUSH ONETIME ONE Stop: 12/25/20 13:23 Last Admin: 12/25/20 13:29 Dose: 15 mg Documented by: Ketorolac Tromethamine (Ketorolac 15 Mg/Ml Sdv) 15 mg IVPUSH ONETIME ONE Stop: 12/26/20 12:56 Last Admin: 12/26/20 13:00 Dose: 15 mg Documented by: Lidocaine HCl (Lidocaine 1% 5 Ml Sdv) 5 ml INJECT ONETIME ONE Stop: 12/25/20 12:32 Last Admin: 12/25/20 13:17 Dose: 5 ml Documented by: Lidocaine/Epinephrine (Lidocaine 1% With Epinephrine 1:100,000 10 Ml Mdv) 10 ml INFILT ONETIME ONE Stop: 12/25/20 11:08 Last Admin: 12/25/20 12:25 Dose: Not Given Documented by: Methylprednisolone Sodium Succinate (Methylprednisolone Sodium Succinate 125 Mg/2 Ml Sdv) 125 mg IV ONETIME ONE Stop: 12/25/20 16:05 Last Admin: 12/25/20 16:55 Dose: 125 mg Documented by: Metoclopramide HCl (Metoclopramide 10 Mg/2 Ml Sdv) 10 mg IVPUSH ONETIME ONE Stop: 12/25/20 13:23 Last Admin: 12/25/20 13:29 Dose: 10 mg Documented by: - Exam General: Reports: Alert, Oriented HEENT: Reports: Pupils Equal Lungs: Reports: Clear to Auscultation, Normal Respiratory Effort Cardiovascular: Reports: Regular Rate, Regular Rhythm GI/Abdominal Exam: Soft, Non-Tender Psy/Mental Status: Reports: Alert <Rodo Guo - Last Filed: 12/26/20 22:10> Discharge Summary - Referral to Home Health Primary Care Physician: LUIS FELIPE De Oliveira - Patient Data Vitals - Most Recent: Last Vital Signs Temp 36.8 C 12/26/20 12:00 Pulse 82 12/26/20 12:00 Resp 16 12/26/20 12:00 BP 114/70 12/26/20 12:00 Pulse Ox 98 12/26/20 12:00 I&O - Last 24 hours: Intake & Output 12/26/20 12/26/20 12/26/20 06:59 14:59 22:59 Intake Total 500 Output Total 0 Balance 500 Lab Results - Last 24 hrs: Laboratory Results - last 24 hr 12/25/20 Range/Units 11:16 RPR Non-Reac (Non-Reac) Med Orders - Current: Current Medications Discontinued Medications Acetaminophen (Acetaminophen 325 Mg Tab) 650 mg PO Q4H PRN PRN Reason: Pain (Mild 1-3)/fever Last Admin: 12/26/20 10:48 Dose: 650 mg Documented by: Diphenhydramine HCl (Diphenhydramine 50 Mg/Ml Sdv) 25 mg IVPUSH ONETIME ONE Stop: 12/25/20 13:23 Last Admin: 12/25/20 13:30 Dose: 25 mg Documented by: Sodium Chloride (Normal Saline) 1,000 mls @ 999 mls/hr IV .Bolus ONE Stop: 12/25/20 12:05 Last Admin: 12/25/20 11:19 Dose: 999 mls/hr Documented by: Ceftriaxone Sodium/Dextrose 1 (gm/ Premix) 50 mls @ 100 mls/hr IV ONETIME ONE Stop: 12/25/20 12:52 Last Admin: 12/25/20 13:17 Dose: 100 mls/hr Documented by: Methylprednisolone Sodium Succinate 1,000 mg/ Sodium Chloride 258 mls @ 516 mls/hr IV ONETIME ONE Stop: 12/25/20 17:59 Methylprednisolone Sodium Succinate 875 mg/ Sodium Chloride 257 mls @ 514 mls/hr IV ONETIME ONE Stop: 12/25/20 17:44 Last Admin: 12/25/20 18:02 Dose: 514 mls/hr Documented by: Vancomycin HCl 1.5 gm/ Premix 300 mls @ 200 mls/hr IV ONETIME ONE Stop: 12/25/20 19:03 Last Admin: 12/25/20 17:57 Dose: 200 mls/hr Documented by: Methylprednisolone Sodium Succinate 1,000 mg/ Sodium Chloride 258 mls @ 258 mls/hr IV ONETIME ONE Stop: 12/26/20 15:59 Last Admin: 12/26/20 15:41 Dose: 258 mls/hr Documented by: Ketorolac Tromethamine (Ketorolac 15 Mg/Ml Sdv) 15 mg IVPUSH ONETIME ONE Stop: 12/25/20 11:06 Last Admin: 12/25/20 12:20 Dose: 15 mg Documented by: Ketorolac Tromethamine (Ketorolac 30 Mg/Ml Sdv) 15 mg IVPUSH ONETIME ONE Stop: 12/25/20 13:23 Last Admin: 12/25/20 13:29 Dose: 15 mg Documented by: Ketorolac Tromethamine (Ketorolac 15 Mg/Ml Sdv) 15 mg IVPUSH ONETIME ONE Stop: 12/26/20 12:56 Last Admin: 12/26/20 13:00 Dose: 15 mg Documented by: Lidocaine HCl (Lidocaine 1% 5 Ml Sdv) 5 ml INJECT ONETIME ONE Stop: 12/25/20 12:32 Last Admin: 12/25/20 13:17 Dose: 5 ml Documented by: Lidocaine/Epinephrine (Lidocaine 1% With Epinephrine 1:100,000 10 Ml Mdv) 10 ml INFILT ONETIME ONE Stop: 12/25/20 11:08 Last Admin: 12/25/20 12:25 Dose: Not Given Documented by: Methylprednisolone Sodium Succinate (Methylprednisolone Sodium Succinate 125 Mg/2 Ml Sdv) 125 mg IV ONETIME ONE Stop: 12/25/20 16:05 Last Admin: 12/25/20 16:55 Dose: 125 mg Documented by: Metoclopramide HCl (Metoclopramide 10 Mg/2 Ml Sdv) 10 mg IVPUSH ONETIME ONE Stop: 12/25/20 13:23 Last Admin: 12/25/20 13:29 Dose: 10 mg Documented by: - Free Text/Narrative Note: I have seen and examined the patient with the resident. I have discussed find ings and treatment plan with the resident. I agree with the assessment and plan as outlined in the following note. Prior to admission patient was seen by Dr. Ramos. Patient was sent to the ED for MRI and LP. Following these studies Dr. Ramos was called and recommended three days of high dose solumedrol. ER physician was unsuccessful at guaranteeing outpatient infusion, so hospitalist service was called to admit. Patient today is eager to go home. She states her vision is improving. Outpatient infusion of solumedrol has been arranged. Patient is to be discharged per Dr. Ramos's recommendation with steroid taper following tomorrows dose of solumedrol.
== END 2020-12-26 16:30 | disposition home or self-care (01) ==
LOC: MW.ED 09:46 → MW.MS 18:15
PROVIDERS: ADMIT Internal Medicine; ATTEND Internal Medicine
DX: H46.9 Unspecified optic neuritis (principal); G93.2 Benign intracranial hypertension; F17.210 Nicotine dependence, cigarettes, uncomplicated
CPT/HCPCS: 36415; 62270; 70551; 80053; 82945; 84157; 85025; 85652; 86140; 86592; 86618; 86780; 87070; 87205; 89050; 96365; 96366; 96367; 96375; 96376; 99285; A9270; J0696; J1200; J1885; J2765; J2930; J3370; J7030; J7050; G0378

== ENCOUNTER 2022-11-04 17:36 | Emergency (ER) | payer MEDICAID ==
[2022-11-04] MEDS ORDERED: Diphtheria,Pertussis(Acell),Tetanus Vaccine 0.5 ML Syringe IM ONE (18:05)
== END 2022-11-04 18:27 | disposition home or self-care (01) ==
LOC: MW.ED 17:36
DX: S61.011A Laceration without foreign body of right thumb without damage to nail, initial encounter (principal); Z23 Encounter for immunization; Z72.0 Tobacco use; W25.XXXA Contact with sharp glass, initial encounter; Y93.G1 Activity, food preparation and clean up
CPT/HCPCS: 12002; 90471; 90715; 99282-25; 99283

== ENCOUNTER 2022-11-21 00:17 | Emergency (ER) | payer MEDICAID ==
[2022-11-21 01:10] LABS: APPEARANCE,URINE SLT CLOUDY; BILIRUBIN,URINE NEGATIVE (NEGATIVE); COLOR,URINE DARK YELLOW; GLUCOSE,URINE NEGATIVE (NEGATIVE); KETONES,URINE TRACE mg/dL (NEGATIVE); LEUKOCYTE ESTERASE,URINE NEGATIVE (NEGATIVE); NITRITE,URINE NEGATIVE (NEGATIVE); OCCULT BLOOD,URINE NEGATIVE (NEGATIVE); PROTEIN,URINE 30 mg/dL (NEGATIVE); UROBILINOGEN,URINE 0.2 EU/dL (<2.0)
[2022-11-21 01:18] LABS: BACTERIA,URINE 2+ (NEGATIVE); EPITHELIAL CELLS,URINE MODERATE (NONE-FEW); RBC,URINE 0-1 (0-2/HPF); WBC,URINE 0-2 (0-5/HPF)
[2022-11-21] MEDS ORDERED: Prochlorperazine 10 MG Tab PO ONE (01:28)
[2022-11-21] MEDS ORDERED: Sodium Chloride 0.9% 10 ML Syringe FLUSH PRN (01:28)
[2022-11-21] MEDS ORDERED: Lactated Ringers 1,000 ML IV ONE (01:28)
[2022-11-21] MEDS ORDERED: Ketorolac 30 MG/ML SDV IVPUSH ONE (01:28)
[2022-11-21] MEDS ORDERED: Sodium Chloride 0.9% 2.5 ML Syringe FLUSH PRN (01:28)
[2022-11-21] MEDS ORDERED: Doxycycline 100 MG Cap PO ONE (01:29)
[2022-11-21] MEDS ORDERED: cefTRIAXone 1 GM in Sodium Chloride 0.9% 50 ML IV ONE (01:29)
[2022-11-21 02:06] LABS: BASOPHILS PERCENT AUTO 0.3 % (0.0-1.5); EOSINOPHILS ABSOLUTE AUTO 0.1 K/uL (0.0-0.7); EOSINOPHILS PERCENT AUTO 0.8 % (0.0-7.0); HEMATOCRIT 43.2 % (36.0-46.0); HEMOGLOBIN 14.7 g/dL (12.0-16.0); LYMPHOCYTES ABSOLUTE AUTO 2.6 K/uL (0.6-2.4); LYMPHOCYTES PERCENT AUTO 17.9 % (16.0-40.0); MEAN CORPUSCULAR HEMOGLOBIN 32.7 pg (27.0-32.0); MONOCYTES ABSOLUTE AUTO 1.2 K/uL (0.0-0.8); MONOCYTES PERCENT AUTO 8.3 % (0.0-15.0); NEUTROPHILS ABSOLUTE AUTO 10.7 K/uL (1.4-5.7); NEUTROPHILS PERCENT AUTO 72.7 % (48.0-80.0); NRBC ABSOLUTE 0 K/uL; PLATELET COUNT,PLT 302 K/uL (150-400); WHITE BLOOD CELL COUNT,WBC 14.73 K/uL (4.0-11.0)
[2022-11-21 02:39] LABS: ALBUMIN 4.1 g/dL (3.4-5.0); BILIRUBIN TOTAL 0.8 mg/dL (0.2-1.0); CALCIUM 9.7 mg/dL (8.5-10.1); CARBON DIOXIDE,CO2 27.4 mmol/L (21.0-32.0); CREATININE 1.3 mg/dL (0.6-1.0); EST CRCL DRUG DOSING (CG) 51.66 mL/min; PROTEIN TOTAL,TP 8.3 g/dL (6.4-8.2)
[2022-11-21 04:45] LABS: C. TRACHOMATIS BY PCR NOT DETECTED; N. GONORRHOEAE BY PCR NOT DETECTED
== END 2022-11-21 04:10 | disposition home or self-care (01) ==
LOC: MW.ED 00:17
DX: R10.9 Unspecified abdominal pain (principal); R80.9 Proteinuria, unspecified; F17.210 Nicotine dependence, cigarettes, uncomplicated; Z79.899 Other long term (current) drug therapy
CPT/HCPCS: 36415; 74176; 80053; 81001; 81025; 85025; 87491; 87591; 96361; 96365; 96375; 99284; A9270; J0696; J1885; J3490; J7120; Q0164

== ENCOUNTER 2023-06-29 20:42 | Emergency (ER) | payer MEDICAID, OTHER | END 2023-06-29 21:42 | disposition home or self-care (01) | LOC: MW.ED 20:42 | DX: S09.90XA Unspecified injury of head, initial encounter (principal); V49.40XA Driver injured in collision with unspecified motor vehicles in traffic accident, initial encounter; Y92.410 Unspecified street and highway as the place of occurrence of the external cause | CPT/HCPCS: 99283 ==

== ENCOUNTER 2024-02-07 16:14 | Emergency (ER) | payer MEDICAID, OTHER ==
[2024-02-07] MEDS: Cyclobenzaprine 10 MG Tab PO ONE (17:05)
[2024-02-07] MEDS: Ketorolac 30 MG/ML SDV IM ONE (17:05)
[2024-02-07 17:30] LABS: APPEARANCE,URINE CLOUDY; BILIRUBIN,URINE NEGATIVE (NEGATIVE); COLOR,URINE YELLOW; GLUCOSE,URINE NEGATIVE (NEGATIVE); KETONES,URINE NEGATIVE (NEGATIVE); LEUKOCYTE ESTERASE,URINE NEGATIVE (NEGATIVE); NITRITE,URINE NEGATIVE (NEGATIVE); OCCULT BLOOD,URINE NEGATIVE (NEGATIVE); PROTEIN,URINE NEGATIVE (NEGATIVE); UROBILINOGEN,URINE 0.2 EU/dL (<2.0)
== END 2024-02-07 18:22 | disposition home or self-care (01) ==
LOC: MW.ED 16:14
DX: R10.9 Unspecified abdominal pain (principal); F17.210 Nicotine dependence, cigarettes, uncomplicated; Z75.8 Other problems related to medical facilities and other health care; W19.XXXA Unspecified fall, initial encounter; Y92.009 Unspecified place in unspecified non-institutional (private) residence as the place of occurrence of the external cause
CPT/HCPCS: 74176; 81003; 81025; 96372; 99284; A9270; J1885; 99283

== ENCOUNTER 2024-07-05 01:07 | Emergency (ER) | payer MEDICAID ==
[2024-07-05] MEDS: Ibuprofen 600 MG Tab PO ONE (01:30)
== END 2024-07-05 02:26 | disposition home or self-care (01) ==
LOC: MW.ED 01:07
DX: S63.501A Unspecified sprain of right wrist, initial encounter (principal)
CPT/HCPCS: 73110; 99283; A9270